=== PATIENT | female | born 1945 | race Caucasian/White ===

== ENCOUNTER 2020-10-19 10:22 | Outpatient (CLI) | payer MEDICARE, OTHER | END 2020-10-19 23:59 | disposition home or self-care (01) | LOC: STAR 10:22 | PROVIDERS: ATTEND Internal Medicine Cardiovascular Disease | DX: Z20.822 Contact with and (suspected) exposure to COVID-19 (principal) | CPT/HCPCS: 87635 ==

== ENCOUNTER 2020-10-23 06:00 | Observation (INO) | payer MEDICARE, OTHER ==
[~2020-10-23] VITALS: Ht 160 cm; Wt 75.8 kg
[2020-10-23] MEDS ORDERED: SODIUM CHLORIDE 0.9% 1,000 ML IV SCH (06:30)
[2020-10-23] MEDS ORDERED: METHYL B PO (06:46)
[2020-10-23] MEDS ORDERED: HYDR12.517 PO (06:46)
[2020-10-23] MEDS ORDERED: [UNRECOGNIZED DRUG - OTHER] PO (06:46)
[2020-10-23] MEDS ORDERED: UBID100C41 PO (06:46)
[2020-10-23] MEDS ORDERED: [UNRECOGNIZED DRUG - OTHER] PO (06:46)
[2020-10-23] MEDS ORDERED: APIX5TAB PO (06:46)
[2020-10-23] MEDS ORDERED: [UNRECOGNIZED DRUG - OTHER] PO (06:46)
[2020-10-23] MEDS ORDERED: Multivitamin PO (06:46)
[2020-10-23] MEDS ORDERED: FOLATE PO (06:46)
[2020-10-23] MEDS ORDERED: LEVO100T5 PO (06:46)
[2020-10-23] MEDS ORDERED: EZET10TA70 PO (06:46)
[2020-10-23] MEDS ORDERED: ATOR20TA37 PO (06:46)
[2020-10-23] MEDS ORDERED: DILT-8 PO (06:46)
[2020-10-23 06:52] VITALS: BP 145/88
[2020-10-23 07:34] LABS: INTERNATIONAL NORMALIZED RATIO 0.93 (0.93-1.1)
[2020-10-23] MEDS ORDERED: APIXABAN 5 MG TABLET ONE (08:55)
[2020-10-23] MEDS ORDERED: LIDOCAINE 2%, 20ML ONE (08:55)
[2020-10-23] MEDS ORDERED: MIDAZOLAM 1 MG/ML, 2ML ONE (09:02)
[2020-10-23] MEDS ORDERED: FENTANYL PF 250 MCG/5ML ONE (09:03)
[2020-10-23] MEDS ORDERED: PROPOFOL 50 ML ONE (09:31)
[2020-10-23] MEDS ORDERED: SUCCINYLCHOLINE 20 MG/ML, 10ML ONE (12:01)
[2020-10-23] MEDS ORDERED: ONDANSETRON 2MG/ML, 2ML ONE (12:01)
[2020-10-23] MEDS ORDERED: ROCURONIUM 10MG/ML,5ML ONE (12:01)
[2020-10-23] MEDS ORDERED: HEPARIN 1,000 UNITS/ML, 10ML ONE ×2 (12:01)
[2020-10-23] MEDS ORDERED: ZOLPIDEM 5MG TABLET PO PRN (12:30)
[2020-10-23] MEDS ORDERED: ACETAMINOPHEN 325 MG TABLET PO PRN (12:30)
[2020-10-23] MEDS ORDERED: ONDANSETRON 2MG/ML, 2ML IVPush PRN (12:30)
[2020-10-23 13:45] VITALS: BP 118/79
[2020-10-23] MEDS ORDERED: MORPHINE SULFATE 4 MG/ML, 1ML ONE (15:56)
[2020-10-23 20:30] VITALS: BP 107/69
[2020-10-23] MEDS: COLCHICINE 0.6 MG CAPSULE PO SCH (20:30)
[2020-10-23] MEDS: APIXABAN 5 MG TABLET PO SCH (20:30)
[2020-10-23] MEDS ORDERED: ATORVASTATIN 20 MG TABLET PO SCH (21:00)
[2020-10-23] MEDS ORDERED: APIXABAN 5 MG TABLET PO SCH (21:00)
[2020-10-24 01:22] VITALS: BP 108/73
[2020-10-24] MEDS ORDERED: LEVOTHYROXINE 100 MCG TABLET PO SCH (06:00)
[2020-10-24 08:09] VITALS: BP 103/65
[2020-10-24] MEDS: COLCHICINE 0.6 MG CAPSULE PO SCH (08:44)
[2020-10-24] MEDS ORDERED: HYDROCHLOROTHIAZIDE 12.5 MG CAPSULE PO SCH (09:00)
[2020-10-24] MEDS ORDERED: EZETIMIBE 10 MG TABLET PO SCH (09:00)
[2020-10-24] MEDS ORDERED: DILTIAZEM 120 MG CAP.ER.24H PO SCH (09:00)
[2020-10-24] MEDS: APIXABAN 5 MG TABLET PO SCH (09:05)
[2020-10-24] MEDS ORDERED: COLC0.6C3 PO (09:43)
== END 2020-10-24 10:46 | disposition home or self-care (01) ==
LOC: CACL 06:00 → ORIP 12:12 → 5SO 13:30 → DCLOUNGE 10-24 10:35
PROVIDERS: ADMIT Internal Medicine Cardiovascular Disease; ATTEND Internal Medicine Cardiovascular Disease
DX: I48.19 Other persistent atrial fibrillation (principal); I48.3 Typical atrial flutter; I10 Essential (primary) hypertension; Z79.01 Long term (current) use of anticoagulants; Z79.899 Other long term (current) drug therapy; Z87.891 Personal history of nicotine dependence
CPT/HCPCS: 36415; 85347; 85610; 93005; 93306; 93312; 93321; 93325; 93613; 93655; 93656; 93657; 93662; C1730; C1732; C1759; C1766; C1893; C1894; G0378; J0330; J1644; J2250; J2405; J2704; J3010; J3490